=== PATIENT | female | born 2000 | race Caucasian/White ===

== ENCOUNTER 2021-11-24 10:49 | Emergency (ER) | payer SELFPAY ==
[~2021-11-24] VITALS: Ht 167.6 cm; Wt 46.5 kg
[2021-11-24 10:50] VITALS: BP 150/85
== END 2021-11-24 11:59 | disposition left against medical advice (07) ==
LOC: M ED 10:49
DX: Z53.21 Procedure and treatment not carried out due to patient leaving prior to being seen by health care provider (principal)

== ENCOUNTER 2021-11-25 09:16 | Emergency (ER) | payer SELFPAY ==
[~2021-11-25] VITALS: Ht 167.6 cm; Wt 47.3 kg
[2021-11-25] MEDS ORDERED: IBUPROFEN 600MG TAB PO ONE (11:35)
[2021-11-25 12:44] VITALS: BP 127/71
== END 2021-11-25 12:45 | disposition home or self-care (01) ==
LOC: M ED 09:16
DX: M54.50 Low back pain, unspecified (principal); M25.512 Pain in left shoulder; M54.2 Cervicalgia; Y04.8XXA Assault by other bodily force, initial encounter; Z91.048 Other nonmedicinal substance allergy status; Y99.9 Unspecified external cause status

== ENCOUNTER → 2022-04-22 | Outpatient (CLI) | payer MEDICAID, OTHER ==
[2022-04-22 17:53] LABS: HEMATOCRIT 32.8 % (36.0-47.0); HEMOGLOBIN 10.5 g/dl (12.0-15.5); MEAN CORPUSCULAR HEMOGLOBIN 27.5 pg (27.0-33.0); MEAN CORPUSCULAR VOLUME 85.9 fl (80.0-96.0); PLATELET COUNT, AUTOMATED 243 10^3/uL (150-450); RED BLOOD COUNT 3.82 10^6/uL (4.00-5.40); WHITE BLOOD COUNT 12.7 10^3/uL (4.0-10.0)
[2022-04-22 18:39] LABS: HIV 1&2 SCREEN CENTAUR NEGATIVE (NEGATIVE)
[2022-04-22 19:07] LABS: GC DNA AMPLIFICATION NEGATIVE (NEGATIVE)
== END ==
LOC: M PLALAB 15:49
PROVIDERS: ATTEND Advanced Practice Midwife
DX: Z34.01 Encounter for supervision of normal first pregnancy, first trimester (principal)